=== PATIENT | female | born 1965 | race African-American/Black ===

== ENCOUNTER 2025-05-05 07:18 | Day surgery (SDC) | payer BC ==
[2025-04-15 15:43] VITALS: BMI 30.1
[2025-05-05 10:07] VITALS: TEMP 97.2
[2025-05-05 10:10] VITALS: RESP 16
[2025-05-05 10:12] VITALS: BP 110/68; PULSE 68
== END 2025-05-05 10:00 | disposition home or self-care (01) ==
LOC: JASU-ENDO 07:18
PROVIDERS: ATTEND Internal Medicine Gastroenterology
PROC: 0DBH8ZX Excision of Cecum, Via Natural or Artificial Opening Endoscopic, Diagnostic (ICD-10-PCS; principal; 2025-05-05 08:00)
DX: Z12.11 Encounter for screening for malignant neoplasm of colon (principal); D12.0 Benign neoplasm of cecum; K64.8 Other hemorrhoids
CPT/HCPCS: 88305-TC